=== PATIENT | male | born 1990 | race Caucasian/White ===

== ENCOUNTER 2016-11-18 09:22 | Emergency (ER) | payer SELFPAY ==
[2016-11-18 09:26] VITALS: BP 154/81
--- NOTE | 2016-11-18 10:06 | ED ---
Lower Extremity - HPI Summary HPI Summary: Pt here w/ Lt knee pain which started while running up a hill this morning. Tried to continue to run but pain would not allow this. [place] and felt a "pop" in front of knee and pain is a burning sensation in front of knee. Denies numbness, tingling, weakness. Has FROM but prefers flexion to extension although full flexion is painful as well. This happened while in training [place] - was seen at [facility] and provided with 800mg ibuprofen, ice and ESHA wrap. Here for XR. No previous injury to this knee. 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 Report he stretches before exercise but rarely after. - History of Current Complaint Chief Complaint: EDExtremityLower Stated Complaint: LT KNEE INJURY Time Seen by Provider: 11/18/16 09:38 Hx Obtained From: Patient Pain Intensity: 6 - Allergies/Home Medications Allergies/Adverse Reactions: Allergies Allergy/AdvReac Type Severity Reaction Status Date / Time No Known Allergies Allergy Verified 11/18/16 09:23 PMH/Surg Hx/FS Hx/Imm Hx Previously Healthy: Yes Infectious Disease History: No Infectious Disease History: Denies: Traveled Outside the [place] in Last 30 Days - Social History Occupation: Employed Full-time Lives: With Family Alcohol Use: Occasionally Hx Substance Use: No Substance Use Type: Reports: None Hx Tobacco Use: No Smoking Status (MU): Never Smoked Tobacco Review of Systems Musculoskeletal: Other - see HPI Skin: Negative Neurological: Negative Psychological: Normal All Other Systems Reviewed And Are Negative: Yes Physical Exam Triage Information Reviewed: Yes Vital Signs On Initial Exam: Initial Vitals Temp Pulse Resp BP Pulse Ox 98.7 F 104 16 154/81 98 11/18/16 09:23 11/18/16 09:23 11/18/16 09:23 11/18/16 09:23 11/18/16 09:23 Vital Signs Reviewed: Yes Appearance: Positive: Well-Appearing, Pain Distress - mild, Obese Skin: Positive: Warm, Dry - no erythema, no ecchymosis Head/Face: Positive: Normal Head/Face Inspection Eyes: Positive: Normal, EOMI ENT: Positive: Hearing grossly normal Cardiovascular: Positive: Pulses are Symmetrical in both Upper and Lower Extremities Musculoskeletal: Positive: Strength/ROM Intact, Pain @ - Lt anterior knee with focal edema and tenderness about the patellar tendon region - pt can extend knee actively but report pain in doing so. Negative: Other - no asha laxity; ( -) Savita Santacruz's Neurological: Positive: Normal, Sensory/Motor Intact, Alert, Oriented to Person Place, Time, CN Intact II-III Psychiatric: Positive: Normal Diagnostics - Vital Signs Vital Signs Temp Pulse Resp BP Pulse Ox 11/18/16 09:23 98.7 F 104 16 154/81 98 - Laboratory Lab Statement: Any lab studies that have been ordered have been reviewed, and results considered in the medical decision making process. Lower Extremity Course/Dx - Course Course Of Treatment: Pt here w/ anterior Lt knee pain and swelling after hearing a "pop" while running today. XR's area neg. Clinical exam + for infrapatellar bursitis vs. patellar tendon strain. Will have pt RICE, NSAID's and f/u w/ PCP. No weight bearing until cleared by medical provider. - Diagnoses Provider Diagnoses: Strain of left knee Discharge - Discharge Plan Condition: Stable Disposition: HOME Patient Education Materials: Crutch Instructions (ED), Knee Bursitis (ED), Knee Pain (ED) Forms: *Work Release Referrals: Dinesh Bonner MD [Medical Doctor] - Additional Instructions: Rest, ice, compression with ESHA wrap, elevation Take ibuprofen 600mg with food every 6 hours for pain, swelling Follow-up with PCP in 1-2 weeks. Call Sunday to schedule appointment. If no improvement, you may benefit from orthopedic consult. Contact information provided here.
--- NOTE | 2016-11-18 10:39 | RAD ---
INDICATION: Left knee injury while running COMPARISON: None TECHNIQUE: 4 view radiograph of the left knee. FINDINGS: The visualized bones are well-corticated and properly aligned. The joint spaces are properly maintained. There is no radiographic evidence of joint effusion. There is no acute fracture, dislocation or other focal bony abnormality. IMPRESSION: Normal knee radiograph as described above. If the patient's symptoms persist, follow-up imaging is recommended.
== END 2016-11-18 11:48 | disposition home or self-care (01) ==
LOC: ED 09:22
DX: S83.92XA Sprain of unspecified site of left knee, initial encounter (principal); X50.9XXA Other and unspecified overexertion or strenuous movements or postures, initial encounter; Y93.02 Activity, running; Y92.9 Unspecified place or not applicable
CPT/HCPCS: 99282